=== PATIENT | female | born 1965 | race Caucasian/White ===

== ENCOUNTER 2016-11-30 13:33 | Day surgery (SDC) | payer OTHER ==
[~2016-11-30] VITALS: Ht 147.3 cm; Wt 78.5 kg
[~2016-11-30 13:33] MED LIST: DICLOFENAC SODI75 MG PO; DOXYCYCL HYC100 MG PO; PRED FORTE1 % OD
[2016-11-30 16:35] VITALS: BP 125/70
== END 2016-11-30 16:30 | disposition home or self-care (01) | DRG 392 ==
LOC: ENDO 13:33 → ORM 16:45 → ENDO 16:50
PROVIDERS: ATTEND Internal Medicine Gastroenterology
PROC: 0DB68ZX Excision of Stomach, Via Natural or Artificial Opening Endoscopic, Diagnostic (ICD-10-PCS; principal; 2016-11-30)
DX: K21.9 Gastro-esophageal reflux disease without esophagitis (principal); B96.81 Helicobacter pylori [H. pylori] as the cause of diseases classified elsewhere; R14.0 Abdominal distension (gaseous); K29.50 Unspecified chronic gastritis without bleeding; K31.9 Disease of stomach and duodenum, unspecified; K44.9 Diaphragmatic hernia without obstruction or gangrene